=== PATIENT | male | born 2000 | race Caucasian/White ===

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

== ENCOUNTER 2021-01-20 17:21 | Emergency (ER) | payer OTHER ==
[~2021-01-20] VITALS: Ht 180.3 cm; Wt 77.1 kg
[2021-01-20] MEDS ORDERED: IBUP600 PO (18:11)
== END 2021-01-20 18:36 | disposition home or self-care (01) ==
LOC: ER 17:21
DX: S97.111A Crushing injury of right great toe, initial encounter (principal); Z91.010 Allergy to peanuts; W20.8XXA Other cause of strike by thrown, projected or falling object, initial encounter; Y92.89 Other specified places as the place of occurrence of the external cause
CPT/HCPCS: 73630; 99283-25

== ENCOUNTER 2021-02-02 03:06 | Emergency (ER) | payer OTHER ==
[~2021-02-02] VITALS: Ht 180.3 cm; Wt 77.1 kg
[~2021-02-02 03:06] MED LIST changes: +IBUP600 PO
== END 2021-02-02 03:54 | disposition home or self-care (01) ==
LOC: ER 03:06
DX: Z03.6 Encounter for observation for suspected toxic effect from ingested substance ruled out (principal); Z91.010 Allergy to peanuts
CPT/HCPCS: 99283

== ENCOUNTER 2021-03-25 17:55 | Emergency (ER) | payer OTHER ==
[~2021-03-25] VITALS: Ht 180.3 cm; Wt 90.7 kg
== END 2021-03-25 18:06 | disposition home or self-care (01) ==
LOC: ER 17:55
DX: U07.1 COVID-19 (principal); Z91.010 Allergy to peanuts
CPT/HCPCS: 99283

== ENCOUNTER 2022-01-26 13:40 | Emergency (ER) | payer OTHER ==
[~2022-01-26] VITALS: Ht 180.3 cm; Wt 81.7 kg
[2022-01-26] MEDS ORDERED: IBUP600 PO (14:45)
[2022-01-26] MEDS ORDERED: BACITO TOP (14:45)
== END 2022-01-26 15:13 | disposition home or self-care (01) ==
LOC: ER 13:40
DX: L55.1 Sunburn of second degree (principal); J45.909 Unspecified asthma, uncomplicated; Z91.010 Allergy to peanuts
CPT/HCPCS: J1885

== ENCOUNTER 2022-05-30 23:48 | Emergency (ER) | payer OTHER ==
[~2022-05-30] VITALS: Ht 188 cm; Wt 65.8 kg
[~2022-05-30 23:48] MED LIST changes: +BACITO TOP
[2022-05-31] MEDS ORDERED: ERYT1OIN LEFTEYE (00:51)
== END 2022-05-31 00:58 | disposition home or self-care (01) ==
LOC: ER 23:48
DX: S05.02XA Injury of conjunctiva and corneal abrasion without foreign body, left eye, initial encounter (principal); X58.XXXA Exposure to other specified factors, initial encounter; H00.016 Hordeolum externum left eye, unspecified eyelid; J45.909 Unspecified asthma, uncomplicated; Z79.899 Other long term (current) drug therapy
CPT/HCPCS: A9270

== ENCOUNTER → 2022-07-05 | Outpatient (CLI) | payer OTHER ==
[~2022-07-05] MED LIST changes: +ERYT1OIN LEFTEYE
== END | disposition home or self-care (01) ==
LOC: LAB 14:18 → LAB SHORT 14:18
DX: R04.2 Hemoptysis (principal)
CPT/HCPCS: 85379

== ENCOUNTER 2022-09-21 09:45 | Emergency (ER) | payer OTHER ==
[~2022-09-21] VITALS: Ht 180.3 cm; Wt 68.0 kg
== END 2022-09-21 10:10 | disposition home or self-care (01) ==
LOC: ER 09:45
DX: R07.89 Other chest pain (principal); M25.511 Pain in right shoulder; J45.909 Unspecified asthma, uncomplicated
CPT/HCPCS: 99282